=== PATIENT | female | born 1970 | race Two or more races ===

== ENCOUNTER 2024-11-15 08:40 | Day surgery (SDC) | payer MEDICAID, SELFPAY ==
--- NOTE | 2024-11-14 07:00 | EKG_ITS ---
[facility] Test Date: 2024-11-14 Pat Name: KOBE SEVILAL Department: Room: - Gender: Female [employer] Finger Buff Material: MANFRED : 1970 Requested By: Abdirashid Torres Order Number: [id number] Reading MD: Abdirashid Torres Measurements Intervals [place] Rate: 69 P: 51 [place]: 161 QRS: 63 QRSD: 85 T: 42 QT: 401 QTc: 431 Interpretive Statements SINUS RHYTHM POSSIBLE LEFT ATRIAL ENLARGEMENT [-0.1mV P WAVE IN V1/V2] POSSIBLE RIGHT VENTRICULAR CONDUCTION DELAY [RSR (QR) IN V1/V2] Compared to ECG 01/13/2018 11:51:40 Sinus bradycardia no longer present Sinus arrhythmia no longer present /[id number]
[2024-11-14 09:31] VITALS: BMI 33.4
[2024-11-14 10:48] LABS: Basophils # (Auto) 0.0 Thou/mm3 (0.0-0.2); Basophils % (Auto) 1 % (0-2.5); Eosinophils # (Auto) 0.2 Thou/mm3 (0.0-0.5); Eosinophils % (Auto) 4 % (0-10); Hematocrit 38.6 % (36.0-46.0); Hemoglobin 13.0 g/dL (12.0-16.0); Immature Granulocytes Auto 0.01 Thou/mm3 (0.00-0.00); Lymphocytes # (Auto) 1.4 Thou/mm3 (1.0-4.8); Lymphocytes % (Auto) 29 % (10-50); Mean Corpuscular HGB Conc 33.7 g/dl (31.0-37.0); Mean Corpuscular Hemoglobin 32.5 pg (25.0-35.0); Mean Corpuscular Volume 97 fL (80-100); Monocytes # (Auto) 0.5 Thou/mm3 (0.0-0.8); Monocytes % (Auto) 9 % (0-12); Neutrophils # (Auto) 2.7 Thou/mm3 (1.8-7.7); Neutrophils % (Auto) 57 % (37-80); Nucleated Red Blood Cell # 0.00 Thou/mm3 (0.00-0.00); Nucleated Red Blood Cell % 0 /100 WBC (0); Platelet Count 267 Thou/mm3 (140-440); RDW Standard Deviation 44.9 fL (36.4-46.3); Red Blood Count 4.00 Miln/mm3 (4.00-5.20); White Blood Count 4.8 Thou/mm3 (3.6-11.0)
[2024-11-14 10:55] LABS: HCG,Qualitative Serum Negative
[2024-11-14 10:57] LABS: Anion Gap 9 (7-16); BUN/Creatinine Ratio 16 Ratio (12-20); Blood Urea Nitrogen 13 mg/dL (9-23); Calcium 9.5 mg/dL (8.3-10.6); Carbon Dioxide 29.2 mMol/L (20.0-31.0); Chloride 106 mMol/L (98-107); Creatinine (Component) 0.8 mg/dL (0.6-1.3); Estimated Creatinine Clearance 78.9 mL/min (>60); Glucose 97 mg/dL (74-106); Osmolality,Calculated 286 (275-295); Potassium 4.0 mMol/L (3.4-5.1); Sodium 144 mMol/L (136-145); eGFR > 60 See Note
[2024-11-15] VITALS (9 sets, daily range): BP systolic 109–138; BP diastolic 75–89; PULSE 62–78; RESP 12–19; TEMP 37–37.2; O2SAT 94–97; BMI 33.2
--- NOTE | 2024-11-15 10:45 | ESOP_ITS ---
Date of Procedure 11/15/24 Pre Op Diagnosis Incarcerated umbilical hernia Post Op Diagnosis Incarcerated umbilical hernia Procedure Primary repair of incarcerated umbilical hernia Findings An approximately 8 mm umbilical hernia defect with incarcerated preperitoneal fat and omentum Procedure Description Patient brought into the operating room in supine position. After administration of general endotracheal anesthesia, patient's abdomen prepped and draped in standard surgical manner. After administration of local anesthesia 3 cm semicircular incision was made below the umbilicus and dissection was deepened soft tissue. The umbilicus was detached from anterior abdominal fascia. The hernia sac was identified and circumferentially dissected off surrounding tissue. The hernia sac was opened, the contents were incarcerated preperitoneal fat and omentum. The hernia sac with preperitoneal fat were excised and the omentum was reduced. The defect was approximately 8 mm in diameter. The defect was primarily closed with simple interrupted sutures using 0 Prolene. Umbilicus was reattached into anterior abdominal fascia. Soft ti ssue closed with interrupted sutures using 2-0 Vicryl and the incision was closed with 4-0 Monocryl in subcuticular fashion. Dermabond applied. Patient tolerated procedure well. She was extubated, breathing spontaneously and without difficulty and was transferred to postanesthesia care in stable condition. Instruments, needles and sponge counts were reported to be correct x 2. Anesthesia GETA and local Pathology / specimen Other (Hernia sac and contents) Estimated Blood Loss 2 Condition Stable Disposition PACU Surgeon Abdirashid Torres MD Surgical Staff Operation Date: 11/15/24 10:30 Case Staff Anesthesiologist: Ignacio Viveros RNeducation courses sales representative: Clotilde Kruse
--- NOTE | 2024-11-15 11:14 | SUR.PHASEI ---
1040: Pt received in [facility] via gurney. Report from Radha LUCIA and Dr. Viveros. Pt obtunded. Resp even, unlabored. VS stable. Surgical site at umbilicus secured with dermabond. Area dry, clean, intact with no swelling, hematoma. 1100: Pt more awake, alert. Asking questions about surgery which were answered. Resp even, unlabored. VS stable. Surgical site remains intact with no swelling, hematoma. Denies pain.
--- NOTE | 2024-11-15 11:29 | SUR.PHASEII ---
1125: Pt more awake, alert. Resp even, unlabored. VS stable. Surgical site at umbilicus intact with no swelling, hematoma. Denies pain. Pt sitting up tolerating po fluids with no difficulty swallowing and no n/v.
--- NOTE | 2024-11-15 11:55 | SUR.PHASEII ---
1155: Pt fully awake, oriented x3. VS stable. Surgical site remains intact with no swelling, hematoma. Abdominal binder placed to surgical site. Pt dressed. Pt assisted to restroom. Ambulation steady. Awaiting transportation.
--- NOTE | 2024-11-15 12:24 | SUR.PHASEII ---
1219: Transportation available. Pt and daughter stated understanding of discharge instruction. Pt also instructed to pickler helper her prescription at [facility]. Pt discharged from [facility] in stable condition.
== END 2024-11-15 12:19 | disposition home or self-care (01) ==
PROVIDERS: Anesthesiology; PCP Family Medicine; Referring Provider Surgery; Visit Provider Surgery
PROC: (CPT 49592; principal; 2024-11-15 10:30)
DX: K42.0 Umbilical hernia with obstruction, without gangrene (principal); Z01.810 Encounter for preprocedural cardiovascular examination
CPT/HCPCS: 49592; 36415; 80048; 84703; 85025; 93005; A4217; A4649; J0690; J1100; J2250; J2704; J2765; J3010; J3490